=== PATIENT | male | born 1990 | race Hispanic/Latino ===

== ENCOUNTER 2025-03-28 08:45 | Emergency (ER) | payer OTHER ==
[~2025-03-28] VITALS: Ht 177.8 cm; Wt 99.8 kg
[2025-03-28 08:51] VITALS: TEMP 98.2
[2025-03-28] MEDS: ACETAMINOPHEN 325 MG TAB PO ONE (09:08)
[2025-03-28] MEDS: KETOROLAC TROMETHAMINE 30 MG/ML VIAL IM STA (09:08)
[2025-03-28] MEDS: LORAZEPAM 1 MG TAB PO ONE (10:09)
[2025-03-28] MEDS: ONDANSETRON HCL 4 MG ORAL DISINTEGRATING TAB PO ONE (10:10)
[2025-03-28 11:00] VITALS: PULSE 100; RESP 20; O2SAT 99
== END 2025-03-28 11:06 | disposition home or self-care (01) ==
LOC: ER 08:49
DX: M79.671 Pain in right foot (principal); S92.011D Displaced fracture of body of right calcaneus, subsequent encounter for fracture with routine healing; F10.11 Alcohol abuse, in remission
CPT/HCPCS: 29515; 73590; 73610; 73650; 99284; Q0162; J1885